=== PATIENT | male | born 1995 | race Caucasian/White ===

== ENCOUNTER 2017-06-24 21:22 | Emergency (ER) | payer OTHER ==
[2017-06-24 21:51] LABS: BILIRUBIN,URINE NEGATIVE (NEGATIVE); GLUCOSE, URINE (UA) NEGATIVE (NEGATIVE); KETONES,URINE (UA) NEGATIVE (NEGATIVE); LEUKOCYTE ESTERASE, URINE NEGATIVE (NEGATIVE); NITRITE,URINE NEGATIVE (NEGATIVE); OCCULT BLOOD,URINE NEGATIVE (NEGATIVE); PROTEIN,URINE NEGATIVE (NEGATIVE); UROBILINOGEN,URINE 0.2 (NORMAL) E.U./dL (NORMAL)
[2017-06-24 21:54] LABS: CLARITY,URINE STRAW (CLEAR)
[2017-06-24] MEDS ORDERED: KETOROLAC 60 MG/2 ML VIAL IM STA (22:15)
[2017-06-24] MEDS ORDERED: DEXAMETHASONE 10 MG/ML VIAL PO STA (22:15)
[2017-06-24] MEDS ORDERED: CYCLOBENZAPRINE 10 MG Prepack 2 PO STA (22:15)
--- NOTE | 2017-06-24 22:36 | ED Physician Documentation ---
PD HPI BACK PAIN - Stated complaint Stated Complaint: BACK PX/NAUSEA - Chief complaint Chief Complaint: Back Pain - History obtained from History obtained from: Patient - History of Present Illness Timing - onset: How many days ago (3) Timing - details: Gradual onset, Still present Location: Lower, Right Quality: Pain, Spasm, Similar to prior episodes Associated symptoms: No: Hematuria Similar symptoms before: Work up / diagnostics, Treatment Recently seen: Not recently seen - Additional information Additional information: Patient is a 21 year old male with a history of severe scoliosis who is presenting to the emergency department for back pain. patient states that it has been worse the last couple of days and it accompanied with some nausea. Patient reports that last time this happened it was a kidney stone so he wanted to come in to get checked out. Review of Systems Constitutional: denies: Fever, Chills Eyes: reports: Reviewed and negative Ears: reports: Reviewed and negative Nose: reports: Reviewed and negative Cardiac: denies: Chest pain / pressure Respiratory: reports: Reviewed and negative GI: reports: Nausea. denies: Abdominal Pain, Vomiting, Constipation, Diarrhea : denies: Dysuria, Frequency, Hesitancy, Hematuria Skin: denies: Rash, Lesions, Abrasion (s) Musculoskeletal: reports: Back pain Neurologic: reports: Reviewed and negative Immunocompromised: denies: Immunocompromised PD PAST MEDICAL HISTORY - Past Medical History Past Medical History: Yes Neuro: Headache/migraine : Kidney stones Musculoskeletal: Scoliosis - Past Surgical History Past Surgical History: Yes - Present Medications Home Medications: Ambulatory Orders Medication Instructions Recorded Confirmed Cyclobenzaprine [Flexeril] 10 mg PO TID PRN #10 tablet 06/24/17 - Allergies Allergies/Adverse Reactions: Allergies Allergy/AdvReac Type Severity Reaction Status Date / Time No Known Drug Allergies Allergy Verified 06/24/17 21:27 - Social History Does the pt smoke?: No Smoking Status: Never smoker Does the pt drink ETOH?: Yes Does the pt have substance abuse?: No - Immunizations Immunizations are current?: Yes - POLST Patient has POLST: No PD ED PE NORMAL - Vitals Vital signs reviewed: Yes - General General: Alert and oriented X 3, No acute distress - HEENT HEENT: Atraumatic, PERRL - Neck Neck: Supple, no meningeal sign - Cardiac Cardiac: RRR - Respiratory Respiratory: No respiratory distress - Abdomen Abdomen: Non distended - Derm Derm: Normal color, No rash - Extremities Extremities: No deformity, No edema - Neuro Neuro: Alert and oriented X 3, No motor deficit, No sensory deficit Eye Opening: Spontaneous Motor: Obeys Commands Verbal: Oriented GCS Score: 15 PD ED PE EXPANDED - Back Back: Soft tissue tenderness (hypertonicity and hypertrophy of right thoracic and lumbar muslces), Other (severe scoliosis) Results - Vitals Vitals: Vital Signs - 24 hr 06/24/17 21:26 Temperature 36.3 C L Heart Rate 91 Respiratory 18 Rate Blood Pressure 133/77 H O2 Saturation 100 Oxygen O2 Source Room air - Labs Labs: Laboratory Tests 06/24/17 21:30 Urine Color YELLOW Urine Clarity STRAW Urine pH 6.0 Ur Specific [place] <=1.005 Urine Protein NEGATIVE Urine Glucose (UA) NEGATIVE Urine Ketones NEGATIVE Urine Occult Blood NEGATIVE Urine Nitrite NEGATIVE Urine Bilirubin NEGATIVE Urine Urobilinogen 0.2 (NORMAL) Ur Leukocyte Esterase NEGATIVE Ur Microscopic Review NOT INDICATED Urine Culture Comments NOT INDICATED PD MEDICAL DECISION MAKING - ED course Complexity details: reviewed old records, reviewed results, re-evaluated patient , considered differential, d/w patient ED course: Patient was seen and examined at bedside. Urine was collected and sent. urinalysis showed no hematuria or infection. patient's symptoms were less likely secondary to kidney stones and more likely to be secondary to his scoliosis. Patient was treated with toradol, decadron and flexeril. Patient required no further work up an was stable for discharge with outpatient follow up. Departure - Departure Disposition: 01 Home, Self Care Clinical Impression: Back pain Condition: Good Instructions: ED Spasm Back No Trauma Follow-Up: primary,care provider [Other] - Within 3 Days Prescriptions: Cyclobenzaprine [Flexeril] 10 mg PO TID PRN #10 tablet PRN Reason: Spasms Comments: Your diagnostics today were within normal limits. There was no blood in your urine or sign of infection. Your symptoms are more likely secondary to your scoliosis and muscle spasm. It may be time to consider surgery. You should follow up with your base doctor for orthopedic follow up. You cannot drink, drive or operate heavy machinery while taking the flexeril. Forms: Activity restrictions
[2017-06-24 22:47] VITALS: BP 117/70
== END 2017-06-24 22:49 | disposition home or self-care (01) ==
LOC: ED 21:22
DX: M54.9 Dorsalgia, unspecified (principal); M41.9 Scoliosis, unspecified
CPT/HCPCS: 81001; 81003; 87086; 96372; 99283